=== PATIENT | female | born 1990 | race Two or more races ===

== ENCOUNTER 2017-06-05 11:10 | Emergency (ER) | payer SELFPAY ==
[2017-06-05 11:17] VITALS: BP 133/98; PULSE 75; TEMP 97.9; BMI 65.9
--- NOTE | 2017-06-05 11:46 | PDOC ---
Attending Attestation - Resident Resident Name: Jamar Chirinos - ED Attending Attestation I have performed the following: I have examined & evaluated the patient, The case was reviewed & discussed with the resident, I agree w/resident's findings & plan, Exceptions are as noted - HPI HPI: 06/05/17 11:50 27yo F hx morbid obesity s/p gastric sleeve 11/2016, TB s/p 6 months of treatment in 2003 p/w positive QuantiFERON gold test as an outpatient. Since patient has a positive PPD and works as a psychotherapist social worker, a quantiferon gold test was reflexed that returned positive and the pt was sent to the ED by her PMD Dr. Berry. The patient denies any symptoms including no night sweats, no fevers, no chills, no weight loss, no coughing. She has not recently been incarcerated and has not traveled recently. Denies contact with any TB positive patients. She was in her usual state of health otherwise, denies chest pain, shortness of breath, abdominal pain, dysuria, lower extremity edema, rashes. We called Dr. Lesa Weller who requests a chest x-ray, CBC, CMP. - Physicial Exam PE: 06/05/17 11:56 GENERAL: Obese, awake, alert, and fully oriented, in no acute distress. HEAD: No signs of trauma EYES: PERRLA, EOMI, sclera anicteric, conjunctiva clear ENT: Auricles normal inspection, hearing grossly normal, nares patent, oropharynx clear without exudates. Moist mucosa NECK: Normal ROM, supple, no lymphadenopathy, JVD, or masses LUNGS: Breath sounds equal, clear to auscultation bilaterally. No wheezes, and no crackles HEART: Regular rate and rhythm, normal S1 and S2, no murmurs, rubs or gallops ABDOMEN: Soft, nontender, normoactive bowel sounds. No guarding, no rebound. No masses EXTREMITIES: Normal range of motion, no edema. No clubbing or cyanosis. No cords, erythema, or tenderness NEUROLOGICAL: Normal speech, cranial nerves intact, negative pronator drift, 5/ 5 strength in all 4 extremities, normal sensation to light touch in all 4 extremities, normal cerebellar exam, normal gait, normal reflexes and tone SKIN: Warm, Dry, normal turgor, no rashes or lesions noted. - Medical Decision Making 06/05/17 11:57 27-year-old female history of TB status post treatment in 2003 presents with positive quantitive furuncle test. Patient is asymptomatic. Exam is unremarkable. Test is likely positive given history of TB but there are no active signs of TB currently. -labs -UPT -CXR -call Dr. Berry -likely DC 06/06/17 20:22 Labs and CXR wnl. Stable for [place] home.
--- NOTE | 2017-06-05 11:57 | PDOC ---
History of Present Illness - General Chief Complaint: Revisit, Lab Variance Stated Complaint: r/o TB LAB VARIANCE Time Seen by Provider: 06/05/17 11:18 History Source: Patient Exam Limitations: No Limitations - History of Present Illness Initial Comments: 06/05/17 11:52 Patient is a 27F with history of a gastric sleeve here today complaining of a positive TB quantiferon test as an outpatient. She reports that she tested positive for latent tb when she was 14 years old, and was given 6 months of antibiotics. She denies fevers, chills, night sweats, cough, shortness of breath , and chest pain. She denies ever being imprisoned, homeless or institutionalized. She was born in the [place], and did not receive TB vaccination. She has not traveled to high risk TB areas. 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 Patient has no complaints other than the lab result at this time. Past History - Past Medical History Allergies/Adverse Reactions: Allergies Allergy/AdvReac Type Severity Reaction Status Date / Time No Known Allergies Allergy Verified 06/05/17 11:11 Home Medications: Ambulatory Orders NK [No Known Home Medication] 06/05/17 Other medical history: + PPD AT 15 , WAS ON TB MEDS FOR 6 MONTHS THEN - Surgical History Abdominal Surgery: Yes (FIBROIDS,LAXMI SLEEVE) - Psycho/Social/Smoking Cessation Hx Anxiety: No Suicidal Ideation: No Smoking History: Never smoked Have you smoked in the past 12 months: No Information on smoking cessation initiated: No Hx Alcohol Use: No Drug/Substance Use Hx: No Substance Use Type: None Review of Systems - Review of Systems Comments:: 06/05/17 11:55 GENERAL/CONSTITUTIONAL: No fever or chills. No weakness. No night sweats HEAD, EYES, EARS, NOSE AND THROAT: No change in vision. No ear pain or discharge. No sore throat. CARDIOVASCULAR: No chest pain or shortness of breath RESPIRATORY: No cough, wheezing, or hemoptysis. GASTROINTESTINAL: No nausea, vomiting, diarrhea, constipation. GENITOURINARY: No dysuria, frequency, or change in urination. SKIN: No rash NEUROLOGIC: No headache, loss of consciousness, or change in strength/sensation. ENDOCRINE: No increased thirst. No abnormal weight change *Physical Exam - Vital Signs Last Vital Signs Temp Pulse Resp BP Pulse Ox 97.9 F 75 18 133/98 100 06/05/17 11:12 06/05/17 11:12 06/05/17 11:12 06/05/17 11:12 06/05/17 11:12 - Physical Exam Comments: 06/05/17 11:56 GENERAL: Awake, alert, and fully oriented, in no acute distress. Morbidly obese. HEAD: No signs of trauma, normocephalic, atraumatic EYES: PERRLA, EOMI, sclera anicteric, conjunctiva clear ENT: Auricles normal inspection, hearing grossly normal, nares patent, oropharynx clear without exudates. Moist mucosa LUNGS: No distress, speaks full sentences, clear to auscultation bilaterally HEART: Regular rate and rhythm, normal S1 and S2, no murmurs, rubs or gallops, peripheral pulses normal and equal bilaterally. ABDOMEN: Soft, nontender, normoactive bowel sounds. No guarding, no rebound. No masses EXTREMITIES: Normal inspection, Normal range of motion, no edema. No clubbing or cyanosis. NEUROLOGICAL: Cranial nerves II through XII grossly intact. Normal speech, no focal sensorimotor deficits SKIN: Warm, Dry, normal turgor, no rashes or lesions noted. ED Treatment Course - LABORATORY CBC & Chemistry Diagram: 06/05/17 12:05 06/05/17 12:05 - RADIOLOGY Radiology Studies Ordered: Category Date Time Status CHEST PA & LAT [RAD] Stat Radiology 06/05/17 11:48 Ordered Medical Decision Making - Medical Decision Making 06/05/17 11:57 27F with history of gastric sleeve here today complaining of a positive TB quant test. Will do chest x-ray, cbc, and cmp to evaluate for active tb risk. 06/05/17 18:34 CXR show no structural abnormalities suggestive of TB. Discharged with follow up with her PCP. *DC/Admit/Observation/Transfer Diagnosis at time of Disposition: Labor abnormality - Discharge Dispostion Disposition: HOME Condition at time of disposition: Good Admit: No - Referrals Referrals: Lesa Berry MD [Primary Care Provider] - - Patient Instructions Additional Instructions: Please follow up with your PCP Lesa Berry in the next week regarding your abnormal TB screening test. Your tests here today were normal, and don't show signs of current TB infection. Please come back if you develop fever, cough, night sweats or lose weight unexpectedly. - Attestations Physician Attestion: 06/05/17 18:03 I, Dr. Jamar Chirinos, attest that this document has been prepared under my direction and personally reviewed by me in its entirety. I further attest, that it accurately reflects all work, treatment, procedures and medical decision -making performed by me.
[2017-06-05 12:38] LABS: BASOPHIL 0.7 % (0-2.0); EOSINOPHIL 1.2 % (0-4.5); MCH 28.9 pg (25.7-33.7); MEAN CELL VOLUME 87.4 fl (80-96); MEAN PLT VOLUME 9.4 fl (7.5-11.1); NEUTROPHILS 57.7 % (42.8-82.8); PLATELET COUNT 356 K/MM3 (134-434); RDW 14.4 % (11.6-15.6); WHITE BLOOD COUNT 6.2 K/mm3 (4.0-10.0)
[2017-06-05 13:10] LABS: ALBUMIN 3.5 g/dl (3.4-5.0); ANION GAP 4 (8-16); BILIRUBIN,TOTAL 0.5 mg/dL (0.2-1.0); CALCIUM 8.2 mg/dL (8.5-10.1); CO2 30 mmol/L (21-32); CREATININE 0.6 mg/dL (0.55-1.02); GLUCOSE,RANDOM 80 mg/dL (74-106); SGOT/AST 24 U/L (15-37); SGPT/ALT 29 U/L (12-78)
[2017-06-05 13:11] LABS: ALK PHOS 96 U/L (45-117)
== END 2017-06-05 18:12 | disposition home or self-care (01) ==
LOC: JER 11:10
DX: R76.11 Nonspecific reaction to tuberculin skin test without active tuberculosis (principal); E66.01 Morbid (severe) obesity due to excess calories; Z68.44 Body mass index [BMI] 60.0-69.9, adult; Z98.84 Bariatric surgery status
CPT/HCPCS: 36415; 71010-TC; 80053; 84703; 85025; 99282-25